=== PATIENT | male | born 1995 | race Two or more races ===

== ENCOUNTER 2022-12-07 13:38 | Emergency (ER) | payer BC ==
[~2022-12-07] VITALS: Ht 190.5 cm; Wt 93.0 kg
== END 2022-12-07 17:34 | disposition home or self-care (01) ==
LOC: ER 13:38
DX: S93.492A Sprain of other ligament of left ankle, initial encounter (principal); W18.39XA Other fall on same level, initial encounter; Y93.89 Activity, other specified; Y92.89 Other specified places as the place of occurrence of the external cause

== ENCOUNTER 2024-04-02 14:03 | Outpatient (CLI) | payer BC | END 2024-04-02 14:07 | disposition home or self-care (01) | LOC: RAD 14:03 | PROVIDERS: ATTEND Orthopaedic Surgery | DX: M25.561 Pain in right knee (principal); M25.572 Pain in left ankle and joints of left foot ==